=== PATIENT | male | born 1955 | race Caucasian/White ===

== ENCOUNTER 2020-08-16 13:16 | Inpatient (IN) | payer SELFPAY ==
[~2020-08-16] VITALS: Ht 170.2 cm; Wt 70.9 kg
[2020-08-16] MEDS ORDERED: ONDANSETRON HCL 4MG/2ML INJ IV STA (13:28)
[2020-08-16] MEDS ORDERED: NITROGLYCERIN 0.4MG TABLET SL SL PRN ×2 (13:30→15:30)
[2020-08-16] MEDS ORDERED: FENTANYL CITRATE/PF 50MCG/ML 2ML VIAL IV ONE (13:30)
[2020-08-16] MEDS ORDERED: HEPARIN 5000 UNITS/ML VIAL IV ONE (13:30)
[2020-08-16 14:16] LABS: BASOPHILS % 0.8 % (0.0-2.0); HEMATOCRIT. 42.7 % (42.0-52.0); HEMOGLOBIN. 14.5 g/dL (14.0-18.0); LYMPHOCYTES % 7.3 % (20.0-50.0); MEAN CORPUSCULAR HEMOGLOBIN 32.4 pg (28.0-32.0); MEAN CORPUSCULAR VOLUME 95.1 fL (80.0-94.0); MEAN PLATELET VOLUME 7.5 fl (7.4-10.4); MONOCYTES % 3.3 % (2.0-8.0); NEUTROPHILS % 88.6 % (40.0-76.0); PLATELET 354 x1000/uL (130-400); RED BLOOD CELL COUNT 4.48 mill/uL (4.7-6.1); RED CELL DISTRIBUTION WIDTH 13.8 % (11.6-14.6)
[2020-08-16 14:23] LABS: CHLORIDE 101 mEq/L (98-107)
[2020-08-16 14:25] LABS: PROTHROMBIN TIME 10.3 sec (9.6-11.0)
[2020-08-16 14:27] LABS: ETHANOL BLOOD < 10 mg/dL
[2020-08-16] MEDS ORDERED: ASPIRIN 81MG EC TABLET PO NR (15:00)
[2020-08-16] MEDS ORDERED: GUAIFENESIN 200MG/10ML SUGAR FREE UDC PO PRN (15:30)
[2020-08-16] MEDS ORDERED: DOCUSATE SODIUM 100MG CAPSULE PO PRN (15:30)
[2020-08-16] MEDS ORDERED: ACETAMINOPHEN 325MG TABLET PO PRN ×2 (15:30)
[2020-08-16] MEDS ORDERED: LORAZEPAM 2MG/ML CPJ IV PRN (15:30)
[2020-08-16] MEDS ORDERED: KETOROLAC 15MG/ML VIAL IV PRN (15:30)
[2020-08-16] MEDS ORDERED: IPRATROPIUM/ALBUTEROL 0.5-3(2.5)MG/3ML NEB NEB PRN (15:30)
[2020-08-16] MEDS ORDERED: ZOLPIDEM TARTRATE 5MG TABLET PO PRN (15:30)
[2020-08-16] MEDS ORDERED: ONDANSETRON HCL 4MG/2ML INJ IV PRN (15:30)
[2020-08-16] MEDS ORDERED: CLONIDINE 0.1MG TABLET PO PRN (15:30)
[2020-08-16] MEDS ORDERED: MAGNESIUM/ALUMINUM HYDROXIDE/SIMETHICONE 30ML UDC PO PRN (15:30)
[2020-08-16] MEDS ORDERED: DEXTROSE 50% WATER 50ML SYRINGE IV PRN (15:30)
[2020-08-16] MEDS: BLOOD SUGAR DIAGNOSTIC STRIP TEST SCH ×2 (17:00→21:36)
[2020-08-16] MEDS: INSULIN LISPRO 100 UNITS/ML SUBCUT SCH ×2 (17:44→21:00)
[2020-08-16 18:02] VITALS: BP 146/80
[2020-08-16 18:18] VITALS: BP 146/80
[2020-08-16] MEDS: ENOXAPARIN 80MG/0.8ML SYR SUBCUT SCH (19:47)
[2020-08-16 20:00] VITALS: BP 142/62
[2020-08-16] MEDS: LISINOPRIL 20MG TABLET PO SCH (21:35)
[2020-08-16] MEDS: ASCORBIC ACID 500 MG TABLET PO SCH (21:35)
[2020-08-16] MEDS: FAMOTIDINE 20MG TABLET PO SCH (21:35)
[2020-08-16] MEDS: ATORVASTATIN CALCIUM 40MG TABLET PO SCH (21:35)
[2020-08-16 22:00] VITALS: BP 130/65
[2020-08-16 23:47] LABS: CREATINE KINASE MB FRACTION 51.7 ng/mL (0.5-3.6)
[2020-08-17] VITALS (11 sets, daily range): BP systolic 98–142; BP diastolic 51–77
[2020-08-17 03:40] LABS: CLARITY URINE CLEAR (CLEAR); COLOR URINE YELLOW (YELLOW); KETONES URINE NEGATIVE (NEGATIVE); LEUKOCYTE ESTERASE URINE NEGATIVE (NEGATIVE); NITRITE URINE NEGATIVE (NEGATIVE); OCCULT BLOOD URINE NEGATIVE (NEGATIVE); PROTEIN URINE NEGATIVE (NEGATIVE); SPECIFIC GRAVITY URINE 1.006 (1.005-1.030); UROBILINOGEN URINE 0.2 E.U./dL (0.2-1.0)
[2020-08-17 03:45] LABS: *AMPHETAMINES SCREEN URINE NEGATIVE (NEGATIVE); *BARBITURATES SCREEN URINE NEGATIVE (NEGATIVE); *BENZODIAZEPINES SCREEN URINE NEGATIVE (NEGATIVE); *COCAINE SCREEN URINE PRESUMTIVE POSITIVE (NEGATIVE); METHADONE URINE SCREEN NEGATIVE (NEGATIVE); OPIATES URINE SCREEN NEGATIVE (NEGATIVE)
[2020-08-17 03:46] LABS: CANNABINOID URINE SCREEN NEGATIVE (NEGATIVE); PHENCYCLIDINE URINE SCREEN NEGATIVE (NEGATIVE)
[2020-08-17] MEDS: ENOXAPARIN 80MG/0.8ML SYR SUBCUT SCH (04:22)
[2020-08-17] MEDS: BLOOD SUGAR DIAGNOSTIC STRIP TEST SCH ×4 (06:46→21:08)
[2020-08-17 07:18] LABS: BASOPHILS % 0.8 % (0.0-2.0); EOSINOPHILS % 1.4 % (0.0-5.0); HEMOGLOBIN. 15.2 g/dL (14.0-18.0); LYMPHOCYTES % 22.7 % (20.0-50.0); MEAN CORPUSCULAR HEMOGLOBIN 32.2 pg (28.0-32.0); MEAN CORPUSCULAR VOLUME 95.4 fL (80.0-94.0); MEAN PLATELET VOLUME 7.9 fl (7.4-10.4); MONOCYTES % 8.2 % (2.0-8.0); NEUTROPHILS % 66.9 % (40.0-76.0); PLATELET 358 x1000/uL (130-400); RED BLOOD CELL COUNT 4.72 mill/uL (4.7-6.1); RED CELL DISTRIBUTION WIDTH 13.7 % (11.6-14.6)
[2020-08-17] MEDS: INSULIN LISPRO 100 UNITS/ML SUBCUT SCH ×4 (07:20→21:00)
[2020-08-17 07:48] LABS: CHLORIDE 105 mEq/L (98-107)
[2020-08-17 07:57] LABS: PHOSPHORUS 2.4 mg/dL (2.5-4.9)
[2020-08-17 07:59] LABS: CREATINE KINASE 616 IU/L (39-308)
[2020-08-17 08:03] LABS: CREATINE KINASE MB FRACTION 55.1 ng/mL (0.5-3.6)
[2020-08-17] MEDS: FAMOTIDINE 20MG TABLET PO SCH ×2 (08:38→21:07)
[2020-08-17] MEDS: ZINC SULFATE 220 MG ( 50 ) CAPSULE PO SCH (08:38)
[2020-08-17] MEDS: ASPIRIN 325MG TABLET PO SCH (08:39)
[2020-08-17] MEDS: ASCORBIC ACID 500 MG TABLET PO SCH ×2 (08:40→21:07)
[2020-08-17] MEDS: LISINOPRIL 20MG TABLET PO SCH (08:40)
[2020-08-17] MEDS ORDERED: LIDOCAINE HCL 1% 20ML VIAL (Pyxis) INJ ONE (15:14)
[2020-08-17] MEDS ORDERED: MIDAZOLAM HCL 5 MG/5 ML VIAL ONE (15:14)
[2020-08-17] MEDS ORDERED: IODIXANOL 320MG/ML 100 ML BOTTLE IV ONE ×2 (15:14→16:00)
[2020-08-17] MEDS ORDERED: FENTANYL CITRATE/PF 50MCG/ML 5ML VIAL ONE (15:14)
[2020-08-17] MEDS ORDERED: IOHEXOL-300 100 ML BOTTLE ONE (16:00)
[2020-08-17] MEDS ORDERED: ACETAMINOPHEN 325MG TABLET PO PRN (16:45)
[2020-08-17] MEDS ORDERED: ATROPINE SULFATE 1MG/10ML SYR IV PRN (16:45)
[2020-08-17] MEDS ORDERED: SODIUM CHLORIDE 0.45% 500 ML IV ONE (17:30)
[2020-08-17] MEDS: LISINOPRIL 10MG TABLET PO SCH (21:00)
[2020-08-17] MEDS ORDERED: ENOXAPARIN 80MG/0.8ML SYR SUBCUT SCH (21:00)
[2020-08-17] MEDS: ATORVASTATIN CALCIUM 40MG TABLET PO SCH (21:08)
[2020-08-18] VITALS (8 sets, daily range): BP systolic 98–161; BP diastolic 46–117
[2020-08-18] MEDS: BLOOD SUGAR DIAGNOSTIC STRIP TEST SCH ×2 (06:26→11:16)
[2020-08-18] MEDS: INSULIN LISPRO 100 UNITS/ML SUBCUT SCH ×2 (07:20→12:48)
[2020-08-18] MEDS: LISINOPRIL 10MG TABLET PO SCH (08:48)
[2020-08-18] MEDS: ZINC SULFATE 220 MG ( 50 ) CAPSULE PO SCH (08:52)
[2020-08-18] MEDS: ASCORBIC ACID 500 MG TABLET PO SCH (08:52)
[2020-08-18] MEDS: FAMOTIDINE 20MG TABLET PO SCH (08:52)
[2020-08-18] MEDS: ASPIRIN 325MG TABLET PO SCH (08:52)
[2020-08-18] MEDS ORDERED: AMLODIPINE 5MG TABLET PO SCH (09:00)
[2020-08-18] MEDS ORDERED: ISOSORBIDE MONONITRATE 30MG TABLET SR 24HR PO SCH (09:00)
[2020-08-18] MEDS ORDERED: CLOP75TA4 MT (11:02)
[2020-08-18] MEDS ORDERED: ASPI-1158 MT (11:02)
[2020-08-18] MEDS ORDERED: ISOS30TA6 PO (11:02)
[2020-08-18] MEDS ORDERED: LISI10TA5 PO (11:02)
[2020-08-18] MEDS ORDERED: LIP40 PO (11:02)
[2020-08-18] MEDS ORDERED: FAMO-135 MT (11:02)
[2020-08-18] MEDS ORDERED: AMLO5TAB88 PO (11:02)
[2020-08-18 12:27] LABS: CREATINE KINASE MB FRACTION 7.7 ng/mL (0.5-3.6)
== END 2020-08-18 13:25 | disposition home or self-care (01) | DRG 190 ==
LOC: EDBD 13:16 → ER 13:16 → 3WST 15:07 → EDBEDREQ 16:04 → ENRESERV 16:21
PROVIDERS: ADMIT Internal Medicine; ATTEND Internal Medicine
PROC: 4A023N7 Measurement of Cardiac Sampling and Pressure, Left Heart, Percutaneous Approach (ICD-10-PCS; principal; 2020-08-17)
PROC: B2111ZZ Fluoroscopy of Multiple Coronary Arteries using Low Osmolar Contrast (ICD-10-PCS; 2020-08-17)
PROC: B2151ZZ Fluoroscopy of Left Heart using Low Osmolar Contrast (ICD-10-PCS; 2020-08-17)
DX: I21.3 ST elevation (STEMI) myocardial infarction of unspecified site (principal); E11.9 Type 2 diabetes mellitus without complications; E78.00 Pure hypercholesterolemia, unspecified; E78.5 Hyperlipidemia, unspecified; I10 Essential (primary) hypertension; F14.11 Cocaine abuse, in remission; Z20.828 Contact with and (suspected) exposure to other viral communicable diseases; I25.10 Atherosclerotic heart disease of native coronary artery without angina pectoris; Z79.899 Other long term (current) drug therapy; Z83.3 Family history of diabetes mellitus; Z95.5 Presence of coronary angioplasty implant and graft
CPT/HCPCS: 36415; 71045; 80053; 80061; 80305; 80320; 81003; 82550; 82553; 82962; 83036; 83735; 83880; 84100; 84484; 85025; 87426; 93005; 93306; 93458; 93970; 99291; C1725; C1769; C1887; C1893; J1644; J1650; J1815; J2250; J2405; J3010; J3490; Q9967; G0480